=== PATIENT | female | born 1965 | race Caucasian/White ===

== ENCOUNTER → 2020-11-01 | Day surgery (SDC) | payer OTHER ==
[~2020-11-01] MED LIST: DICLOFENAC SODI75 MG PO; LATANOPROST2.5 ML EYEBOTH; LIDOCAINE 5% P1 EACH TOP; MAG-OXIDE 400M400 MG PO; NAPROXEN500 MG PO; PERCOCET 5-3251 EACH PO; PRAVASTATIN SOD40 MG PO; VITAMIN D2000 UNIT PO
[2020-11-01 07:07] LABS: HCT 38.6 % (37.0-47.0); HGB 12.4 g/dl (12.5-16.0); MCH 27.7 pg (25.0-31.0); MCHC 32.1 g/dL (32.0-36.0); MCV 86.2 fL (78.0-100.0); MPV 9.8 fL (6.0-9.5); RBC 4.48 M/uL (4.20-5.40); RDW 13.2 % (11.5-14.0); WBC 7.2 K/uL (4.0-10.5)
[2020-11-01 07:50] LABS: ALBUMIN 3.9 g/dL (3.4-5.0); BILIRUBIN - TOTAL 0.2 mg/dL (0.2-1.0); BUN/CREAT RATIO (CALC) 21.5 RATIO; CREATININE 0.65 mg/dL (0.51-0.95); GLOBULIN (CALCULATION) 2.9 g/dL; POTASSIUM 3.8 mmol/L (3.5-5.1); TOTAL PROTEIN 6.8 g/dL (6.4-8.2)
== END | disposition home or self-care (01) ==
LOC: FAS 06:25
PROVIDERS: Orthopaedic Surgery
DX: M75.112 Incomplete rotator cuff tear or rupture of left shoulder, not specified as traumatic (principal); M75.42 Impingement syndrome of left shoulder; M25.712 Osteophyte, left shoulder; S46.212A Strain of muscle, fascia and tendon of other parts of biceps, left arm, initial encounter; M19.012 Primary osteoarthritis, left shoulder; E78.00 Pure hypercholesterolemia, unspecified; Z87.891 Personal history of nicotine dependence
CPT/HCPCS: 36415; 80053; C1713; J0171; J0690; J0735; J1100; J2250; J2405; J2710; J2795; J3010; J7120